=== PATIENT | female | born 1950 | race Caucasian/White ===

== ENCOUNTER 2018-01-22 10:19 | Outpatient (CLI) | payer MEDICARE ==
--- NOTE | 2018-01-25 18:27 | Mammography Report ---
Reason: ENCOUNTER FOR SCREENING MAMMOGRAM FOR MALIGNANT Procedure Date: 01/22/2018 Accession Number: [id number] / [id number] Procedure: ANNY - Screening Mammo w/Deangelo CPT Code: FULL RESULT: EXAM: Screening Mammo w/Deangelo DATE: 01/22/2018 11:19 AM CLINICAL HISTORY: Screening. TECHNIQUE: Bilateral CC and MLO views were obtained. COMPARISON: 10/01/2015 through 03/10/2012 FINDINGS: The breasts demonstrate scattered fibroglandular densities bilaterally. Bilateral breasts: There are no suspicious masses, calcifications or areas of distortion. IMPRESSION: Negative examination RECOMMENDATION: Routine annual screening unless otherwise clinically indicated. BI-RADS CATEGORY 1: Negative STANDARD QUALIFYING STATEMENTS: 1. This examination was not reviewed with the aid of Computer-Aided Detection (CAD). 2. A negative or benign imaging report should not preclude biopsy if clinically suspicious findings are present. 3. Dense breasts may obscure an underlying neoplasm. 4. This examination was reviewed with the aid of 3D breast imaging (tomosynthesis).
== END 2018-01-22 10:20 | disposition home or self-care (01) ==
LOC: DI 10:19
PROVIDERS: ATTEND Internal Medicine
DX: Z12.31 Encounter for screening mammogram for malignant neoplasm of breast (principal)
CPT/HCPCS: 77063; 77067

== ENCOUNTER 2018-01-22 10:19 | Outpatient (CLI) | payer MEDICARE ==
--- NOTE | 2018-01-26 16:15 | DEXA Report ---
Reason: OSTEOPOROSIS Procedure Date: 01/22/2018 Accession Number: [id number] / [id number] Procedure: DEX - Dexa Spine and/or Hip CPT Code: FULL RESULT: EXAM: Dexa Spine and/or Hip DATE: 01/22/2018 11:04 AM CLINICAL HISTORY: OSTEOPOROSIS TECHNIQUE: Dual energy x-ray absorptiometry (DXA) was performed on a [employer] System. Regions measured are the AP Spine, femoral neck, and if needed forearm. COMPARISON: 09/10/2015 In accordance with the International Society for Clinical Densitometry (ISCD) guidelines, data from previous exams may be reanalyzed using current recommendations and techniques. This is done to allow a more accurate basis for comparison with the current study. FINDINGS: The data for the lumbar spine is as follows: BMD (g/cm/cm) T-SCORE Z-SCORE REGION L1 0.819 -2.6 -0.3 L2 0.876 -2.7 -0.4 L3 0.906 -2.4 -0.2 L4 0.940 -2.2 0.1 TOTAL 0.893 -2.4 -0.1 NOTE: All evaluable vertebrae are used for classification The data for the hip is as follows: BMD (g/cm/cm) T-SCORE Z-SCORE REGION Neck 0.708 -2.4 -0.4 TOTAL 0.672 -2.7 -1.0 NOTE: The femoral neck or total proximal femur, whichever is lowest, is used for classification. DXA RESULTS SUMMARY: Spine SCAN DATE AGE BMD CHANGE VS CHANGE VS PREVIOUS PREVIOUS % 01[age]22/2018 [age] 0[age]893 0.021 2.4 09/10/2015 64.7 0[age]872 * Denotes significant change at the 95% confidence level. Denotes dissimilar scan types or analysis methods. DXA RESULTS SUMMARY: Hip SCAN DATE AGE BMD CHANGE VS CHANGE VS PREVIOUS PREVIOUS % 01[age]22/2018 67.1 0.672 -0.008 -1.2 09/10/2015 [age] 0.680 * Denotes significant change at the 95% confidence level. Denotes dissimilar scan types or analysis methods. IMPRESSION: THE WHO CLASSIFICATION BASED ON THE INTERNATIONAL REFERENCE STANDARD IS OSTEOPENIA. THE FRACTURE RISK IS INCREASED. RECOMMENDATION: Patients with diagnosis of osteoporosis or osteopenia should have regular bone mineral density assessment. For those eligible for Medicare, routine testing is allowed once every 2 years. Testing frequency can be increased for patients who have rapidly progressing disease or for those who are receiving medical therapy to restore bone mass. COMMENT: World Health Organization (WHO) definitions for osteoporosis and osteopenia: NORMAL BMD: T-score at -1.0 or higher, fracture risk is low OSTEOPENIA BMD: T-score between -1.0 and -2.5, fracture risk is increased. OSTEOPOROSIS BMD: T-score at -2.5 or lower, fracture risk is high. National Osteoporosis Foundation recommends: 1. Obtain adequate dietary calcium (at least 1200 mg per day) and vitamin D (400-800 international units per day). 2. Participate, as appropriate, in regular weightbearing and muscle-strengthening exercise. 3. Avoid tobacco use and reduce alcohol and caffeine intake. 4. For more detailed information see the website at www.NOF.org.
== END 2018-01-22 10:20 | disposition home or self-care (01) ==
LOC: DI 10:19
PROVIDERS: ATTEND Internal Medicine
DX: Z13.820 Encounter for screening for osteoporosis (principal); M85.89 Other specified disorders of bone density and structure, multiple sites
CPT/HCPCS: 77080

== ENCOUNTER 2018-03-29 10:43 | Day surgery (SDC) | payer MEDICARE ==
[2018-03-29] MEDS ORDERED: LACTATED RINGERS 1,000 ML IV ONE (11:26)
[2018-03-29] MEDS ORDERED: fentaNYL 250 MCG/5 ML VIAL IVP ONE (12:02)
[2018-03-29] MEDS ORDERED: MIDAZOLAM 2 MG/2 ML VIAL IVP ONE (12:02)
[2018-03-29 12:51] VITALS: BP 122/72
== END 2018-03-29 10:44 | disposition home or self-care (01) ==
LOC: SDS 10:43
PROVIDERS: ATTEND Surgery
PROC: 0DJD8ZZ Inspection of Lower Intestinal Tract, Via Natural or Artificial Opening Endoscopic (ICD-10-PCS; principal; 2018-03-29 12:00)
DX: Z12.11 Encounter for screening for malignant neoplasm of colon (principal); Z80.0 Family history of malignant neoplasm of digestive organs; Z85.43 Personal history of malignant neoplasm of ovary; K64.8 Other hemorrhoids
CPT/HCPCS: G0105; J3010; J7120

== ENCOUNTER 2018-05-17 15:46 | Emergency (ER) | payer MEDICARE ==
[2018-05-17 15:59] VITALS: BP 119/58
[2018-05-17] MEDS ORDERED: TETANUS/DIPHTHERIA/PERTUSSIS 0.5 ML SYRINGE IM ONE (16:31)
[2018-05-17] MEDS ORDERED: BUFFERED LIDOCAINE 10 ML SYRINGE SUBQ STA (16:33)
--- NOTE | 2018-05-17 16:46 | ED Physician Documentation ---
PD HPI UPPER EXT INJURY - Stated complaint Stated Complaint: LFT HAND LAC - Chief complaint Chief Complaint: Laceration - History obtained from History obtained from: Patient - History of Present Illness Location: Left (Right Handed woman with unknown tetanus cut her left wrist accidentally with garden socorro at home just prior to arrival.) Review of Systems Constitutional: reports: Reviewed and negative Ears: reports: Reviewed and negative Throat: reports: Reviewed and negative PD PAST MEDICAL HISTORY - Past Medical History Cardiovascular: None Respiratory: None Endocrine/Autoimmune: None GI: None 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: Ovarian cancer : None HEENT: Chronic vision loss Psych: None Musculoskeletal: None Derm: None - Past Surgical History Past Surgical History: Yes /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: Hysterectomy, Oophrectomy HEENT: Tonsil/Adenoidectomy Derm: Other - Present Medications Home Medications: Ambulatory Orders Medication Instructions Recorded Confirmed No Known Home Medications 07/25/14 05/17/18 - Allergies Allergies/Adverse Reactions: Allergies Allergy/AdvReac Type Severity Reaction Status Date / Time No Known Drug Allergies Allergy Verified 05/17/18 15:59 - Social History Does the pt smoke?: No Smoking Status: Never smoker Does the pt drink ETOH?: Yes Does the pt have substance abuse?: No - Immunizations Immunizations are current?: Yes - POLST Patient has POLST: Yes PD ED PE NORMAL - Vitals Vital signs reviewed: Yes - General General: Alert and oriented X 3, No acute distress - Extremities Extremities: Other (On the ulnar side of the left wrist, proximal of the wrist crease there is a shallow 1.5 cm lac into sub-Cutaneous tissue without distal neurovascular compromise.) Results - Vitals Vitals: Vital Signs - 24 hr 05/17/18 15:56 Temperature 36.5 C Heart Rate 71 Respiratory 20 Rate Blood Pressure 119/58 L O2 Saturation 98 Oxygen O2 Source Room air Procedures - Laceration (location) L wrist Length in cm: 1.5 Wound type: Curved, Into subcut fat Neurovascular status: Sensory intact, Motor intact Anesthesia: Lidocaine 1% Wound Preparation: Chlorhexadine, Irrigated copiously NS Skin layer closure: Nylon, Interrupted, Size #-0 - enter number (4-0), Sutures - enter # (3) Other: Patient tolerated well, No complications, Neurovascular intact, Tetanus booster given Complexity: Simple Departure - Departure Disposition: 01 Home, Self Care Clinical Impression: Laceration Condition: Good Record reviewed to determine appropriate education?: Yes Instructions: ED Laceration All Comments: Come back for any signs of infection which would include: Redness, swelling, drainage, increased pain, or fevers. Follow-up with your physician in 14 days for suture removal.
[2018-05-17] MEDS ORDERED: BACITRACIN OINT TOP ONE (17:02)
== END 2018-05-17 17:02 | disposition home or self-care (01) ==
LOC: ED 15:46
DX: S61.512A Laceration without foreign body of left wrist, initial encounter (principal); W27.1XXA Contact with garden tool, initial encounter
CPT/HCPCS: 12001; 90471; 90715; 99282; 99283; A9270

== ENCOUNTER 2018-10-19 01:23 | Outpatient (CLI) | payer MEDICARE | END 2018-10-19 01:24 | disposition critical access hospital (66) | LOC: EMS 01:23 | PROVIDERS: ATTEND Surgery | DX: R10.10 Upper abdominal pain, unspecified (principal); R11.2 Nausea with vomiting, unspecified | CPT/HCPCS: A0425; A0427 ==

== ENCOUNTER 2018-10-19 01:41 | Observation (INO) | payer MEDICARE ==
[2018-10-19 02:08] LABS: BASOPHILS # (AUTO) 0.1 10^3/uL (0.0-0.1); BASOPHILS % (AUTO) 0.5 %; EOSINOPHILS # (AUTO) 0.1 10^3/uL (0.0-0.7); EOSINOPHILS % (AUTO) 0.4 %; HGB - HEMOGLOBIN 15.7 g/dL (12.0-16.0); LYMPHOCYTES % (AUTO) 6.3 %; MEAN CORPUSCULAR HEMOGLOBIN 33.4 pg (27.0-31.0); MEAN CORPUSCULAR HGB CONC 34.5 g/dL (32.0-36.0); MEAN CORPUSCULAR VOLUME 96.8 fL (81.0-99.0); MEAN PLATELET VOLUME 10.2 fL (7.9-10.8); MONOCYTES # (AUTO) 0.5 10^3/uL (0.0-1.0); MONOCYTES % (AUTO) 3.3 %; NEUTROPHILS # (AUTO) 14.7 10^3/uL (1.5-6.6); NEUTROPHILS % (AUTO) 88.8 %; PLT - PLATELET COUNT 256 10^3/uL (130-450); RED CELL DISTRIBUTION WIDTH 11.9 % (12.0-15.0); WHITE BLOOD COUNT 16.6 x10^3/uL (4.8-10.8)
[2018-10-19 02:21] LABS: ALBUMIN 4.3 g/dL (3.2-5.5); ALBUMIN/GLOBULIN RATIO 1.4 (1.0-2.2); BILIRUBIN,TOTAL 0.4 mg/dL (0.2-1.0); CALCIUM 10.2 mg/dL (8.5-10.3); CREATININE 0.7 mg/dL (0.4-1.0); TOTAL PROTEIN 7.4 g/dL (6.7-8.2)
--- NOTE | 2018-10-19 02:35 | ED Physician Documentation ---
PD HPI NVD - Stated complaint Stated Complaint: ABD PX N/V - Chief complaint Chief Complaint: Abd Pain - History obtained from History obtained from: Patient - History of Present Illness Timing - onset: How many hours ago (4) Timing - duration: Hours (4) Timing - details: Abrupt onset, Still present Associated symptoms: Abdominal pain, Loss of appetite. No: Chest pain, Hematemesis Contributing factors: No: Sick contact, Bad food, Recent antibiotics Improved by: Vomiting. No: Laying still Worsened by: Eating, Moving. No: Breathing Similar symptoms before: Diagnosis (bowel obstruction few times, treated nonoperatively. Last episode 2014. Had been doing well with normal intake/diet and bowel movements. Onset of pain just few hours ago.) Recently seen: Not recently seen Review of Systems Constitutional: reports: Fatigue. denies: Fever, Chills, Myalgias Nose: denies: Rhinorrhea / runny nose, Congestion Throat: denies: Sore throat Cardiac: denies: Chest pain / pressure Respiratory: denies: Dyspnea, Cough GI: reports: Abdominal Pain, Nausea, Vomiting. denies: Constipation, Diarrhea, Bloody / black stool : denies: Dysuria, Frequency Skin: denies: Rash Musculoskeletal: denies: Neck pain, Back pain Neurologic: reports: Generalized weakness. 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: Ovarian cancer : None HEENT: Chronic vision loss Psych: None Musculoskeletal: None Derm: None - Past Surgical History Past Surgical History: Yes /CHOKE REAMER: Hysterectomy, Oophrectomy HEENT: Tonsil/Adenoidectomy Derm: Other - Present Medications Home Medications: Ambulatory Orders Medication Instructions Recorded Confirmed No Known Home Medications 07/25/14 05/17/18 - Allergies Allergies/Adverse Reactions: Allergies Allergy/AdvReac Type Severity Reaction Status Date / Time No Known Drug Allergies Allergy Verified 05/17/18 15:59 - Social History Does the pt smoke?: No Smoking Status: Never smoker Does the pt drink ETOH?: Yes Does the pt have substance abuse?: No - Immunizations Immunizations are current?: Yes - POLST Patient has POLST: Yes PD ED PE NORMAL - Vitals Vital signs reviewed: Yes - General General: Alert and oriented X 3, Well developed/nourished, Other (She appears uncomfortable with knees drawn up. The belly is mildly distended with some increased bowel sounds in general tenderness.) - HEENT HEENT: Pharynx benign - Neck Neck: Supple, no meningeal sign, No adenopathy - Cardiac Cardiac: RRR, No murmur - Respiratory Respiratory: Clear bilaterally - Abdomen Abdomen: No organomegaly, Other (Generally tender but mostly in the mid abdomen with some distention and hyperactive bowel sounds.). No: Normal bowel sounds (increased) - Female Female : Deferred - Rectal Rectal: Deferred - Back Back: No CVA TTP - Derm Derm: Normal color, Warm and dry - Extremities Extremities: No deformity, No tenderness to palpate, Normal ROM s pain, No edema, No calf tenderness / cord - Neuro Neuro: Alert and oriented X 3, No motor deficit, Normal speech Results - Vitals Vitals: Vital Signs - 24 hr 10/19/18 10/19/18 01:44 03:46 Temperature 36.7 C Heart Rate 72 73 Respiratory 15 16 Rate Blood Pressure 111/63 105/61 O2 Saturation 99 97 Oxygen O2 Source Room air - Labs Labs: Laboratory Tests 10/19/18 10/19/18 10/19/18 01:50 01:50 03:00 WBC 16.6 H RBC 4.70 Hgb 15.7 Hct 45.5 MCV 96.8 MCH 33.4 H MCHC 34.5 RDW 11.9 L Plt Count 256 MPV 10.2 Neut # (Auto) 14.7 H Lymph # (Auto) 1.0 L [place] # (Auto) 0.5 Eos # (Auto) 0.1 Baso # (Auto) 0.1 Absolute Nucleated RBC 0.00 Nucleated RBC % 0.0 Sodium 145 Potassium 3.8 Chloride 102 Carbon Dioxide 32 Anion Gap 11.0 BUN 15 Creatinine 0.7 Estimated GFR (MDRD) 84 L Glucose 144 H Lactic Acid Calcium 10.2 Magnesium 2.0 Total Bilirubin 0.4 AST 20 ALT 25 Alkaline Phosphatase 75 Total Protein 7.4 Albumin 4.3 Globulin 3.1 Albumin/Globulin Ratio 1.4 Lipase 26 Urine Color Urine Clarity Urine pH Ur Specific [place] Urine Protein Urine Glucose (UA) Urine Ketones Urine Occult Blood Urine Nitrite Urine Bilirubin Urine Urobilinogen Ur Leukocyte Esterase Ur Microscopic Review Urine Culture Comments 10/19/18 10/19/18 03:00 03:31 WBC RBC Hgb Hct MCV MCH MCHC RDW Plt Count MPV Neut # (Auto) Lymph # (Auto) [place] # (Auto) Eos # (Auto) Baso # (Auto) Absolute Nucleated RBC Nucleated RBC % Sodium Potassium Chloride Carbon Dioxide Anion Gap BUN Creatinine Estimated GFR (MDRD) Glucose Lactic Acid 1.5 Calcium Magnesium Total Bilirubin AST ALT Alkaline Phosphatase Total Protein Albumin Globulin Albumin/Globulin Ratio Lipase Urine Color YELLOW Urine Clarity CLEAR Urine pH 8.0 H Ur Specific [place] <=1.005 Urine Protein NEGATIVE Urine Glucose (UA) NEGATIVE Urine Ketones NEGATIVE Urine Occult Blood NEGATIVE Urine Nitrite NEGATIVE Urine Bilirubin NEGATIVE Urine Urobilinogen 0.2 (NORMAL) Ur Leukocyte Esterase NEGATIVE Ur Microscopic Review NOT INDICATED Urine Culture Comments NOT INDICATED - Rads (name of study) abd/pelvic CT Radiology: Prelim report reviewed, See rad report PD MEDICAL DECISION MAKING - ED course Complexity details: reviewed results (CT scan is showing a mid ileal small bowel obstruction with transition in the deep pelvis.), re-evaluated patient (Symptoms much improved with the IV fluids and pain and antiemetic medications.), considered differential (Consistent with likely small bowel obstruction versus diverticulitis versus appendix versus other process. We will get labs and CT scan), d/w patient, d/w packaging sales consultant (Talked with Dr. Rodriguez our hospitalist who would see and hospitalize the patient.) Departure - Departure Disposition: ED Place in Observation Clinical Impression: Vomiting, Partial small bowel obstruction, Small bowel obstruction due to adhesions Abdominal pain Qualifiers: Abdominal location: generalized Qualified Code(s): R10.84 - Generalized abdominal pain Nausea and vomiting Qualifiers: Vomiting type: unspecified Vomiting Intractability: intractable Qualified Code(s): R11.2 - Nausea with vomiting, unspecified Condition: Stable Record reviewed to determine appropriate education?: Yes
[2018-10-19] MEDS ORDERED: SODIUM CHLORIDE 0.9% 1,000 ML IV ONE (02:43)
[2018-10-19] MEDS ORDERED: ONDANSETRON 4 MG/2 ML VIAL IVP STA (02:43)
[2018-10-19] MEDS ORDERED: KETOROLAC 15 MG/ML VIAL IVP STA (02:43)
[2018-10-19] MEDS ORDERED: HYDROmorphone 1 MG/ML CARPUJECT IVP STA (02:43)
[2018-10-19] MEDS ORDERED: IOVERSOL 320 100 ML VIAL IVP ONE ×2 (03:08→03:22)
[2018-10-19 03:43] LABS: BILIRUBIN,URINE NEGATIVE (NEGATIVE); GLUCOSE, URINE (UA) NEGATIVE (NEGATIVE); KETONES,URINE (UA) NEGATIVE (NEGATIVE); LEUKOCYTE ESTERASE, URINE NEGATIVE (NEGATIVE); NITRITE,URINE NEGATIVE (NEGATIVE); OCCULT BLOOD,URINE NEGATIVE (NEGATIVE); PROTEIN,URINE NEGATIVE (NEGATIVE); UROBILINOGEN,URINE 0.2 (NORMAL) E.U./dL (NORMAL)
[2018-10-19 03:44] LABS: CLARITY,URINE CLEAR (CLEAR)
--- NOTE | 2018-10-19 03:48 | CT Report ---
Reason: abd pain and vomiting; prior SBOs lat 2014 Procedure Date: 10/19/2018 Accession Number: [id number] / [id number] Procedure: CT - Abdomen/Pelvis W CPT Code: FULL RESULT: EXAM: CT ABDOMEN AND PELVIS EXAM DATE: 10/19/2018 03:25 AM. CLINICAL HISTORY: Abdominal pain and vomiting; prior small bowel obstructions 2014. COMPARISONS: None. TECHNIQUE: Routine helical CT imaging was performed through the abdomen and pelvis. IV contrast: Yes . Enteric contrast: No . Reconstructions: Coronal and sagittal. In accordance with CT protocol optimization, one or more of the following dose reduction techniques were utilized for this exam: automated exposure control, adjustment of mA and/or KV based on patient size, or use of iterative reconstructive technique. FINDINGS: Lung Bases: Right middle lobe and lingular scarring, otherwise unremarkable. Liver: Small cysts. No suspicious masses. Gallbladder/Bile Ducts: Unremarkable. Spleen: Unremarkable. Pancreas: Unremarkable. Adrenal Glands: Unremarkable. Kidneys: Unremarkable. No suspicious masses or hydronephrosis. Peritoneal Cavity/Bowel: Mid ileal small bowel obstruction with transition in the deep pelvis, probably due to an adhesion. Mild mesenteric edema adjacent to the dilated loops of proximal bowel. Mild free fluid. No gross bowel wall thickening or free air. Pelvic Organs: Post hysterectomy with no adnexal masses seen. The bladder appears within normal limits. Vasculature: No aneurysms or other significant abnormality. Bones: No significant abnormality. Other: None. IMPRESSION: 1. Mid ileal small bowel obstruction with transition in the deep pelvis, probably due to an adhesion. Mild mesenteric edema. 2. Post hysterectomy. RADIA
[2018-10-19] MEDS ORDERED: ONDANSETRON 4 MG/2 ML VIAL IVP PRN (04:05)
[2018-10-19] MEDS ORDERED: ACETAMINOPHEN 325 MG TABLET PO PRN (04:05)
[2018-10-19] MEDS ORDERED: MORPHINE 2 MG/ML CARPUJECT IVP PRN (04:05)
--- NOTE | 2018-10-19 04:14 | HISTORY & PHYSICAL EXAMINATION ---
Chief Complaint - Chief Complaint Chief Complaint: Abdominal pain History of Present Illness - Admitted From Admitted From:: Home - History Obtained From Records Reviewed: Yes History obtained from: Patient, Spouse - History of Present Illness HPI Comment/Other: This is a very pleasant 67 year old female with a past medical history significant for ovarian cancer that is now in remission and recurrent small bowel obstruction who presents from home complaining of abdominal. She states her abdominal pain started yesterday but became more severe around 10pm. She had nausea along with multiple episodes of emesis. She was initially passing gas but is no longer. Her last bowel movement was >24 hours ago. She reports her symptoms are similar to her prior episodes of small bowel obstruction. Her most recent episode was in 2014. She had a hysterectomy for her ovarian cancer back in 1999 followed by another exploratory laparotomy after she completed chemotherapy. She denies fevers, chills, dysuria, urgency, chest pain, cough. She reports feeling improved here in the ER after receiving IV fluids and pain medication. In the ER, she was afebrile, normotensive and not tachycardic. Labs were significant for a leukocytosis of 16 with a left shift. Urinalysis was unremarkable. CT of the abdomen/pelvic revealed a mid ileal small bowel obstruction with transition in the deep pelvis. She will be admitted for further management. 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 She believes her grandfather may have had a stroke. Living arrangement: At home Living Situation: With spouse/s.o. Social History Notes: She has lived on [facility] for the past 5 years with her . 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 They previously lived in [place], [place]. She does not smoke. Does drink alcohol but not daily. - Substance History Use: Uses substance without health or social issues: Alcohol - POLST Patient has POLST: Yes Meds/Allgy - Home Medications Home Medications: Ambulatory Orders Medication Instructions Recorded Confirmed No Known Home Medications 07/25/14 05/17/18 - Allergies Allergies/Adverse Reactions: Allergies Allergy/AdvReac Type Severity Reaction Status Date / Time No Known Drug Allergies Allergy Verified 05/17/18 15:59 Review of Systems - Constitutional Constitutional: reports: Poor appetite. denies: Fever, Chills - Cardiovascular Cariovascular: denies: Chest pain, Exertional dyspnea, Decr. exercise tolerance - Respiratory Respiratory: denies: Cough, SOB at rest, SOB with exertion - Gastrointestinal Gastrointestinal: reports: Abdominal pain, Nausea, Vomiting, Poor appetite. denies: Diarrhea, Darell blood emesis - Genitourinary Genitourinary: denies: Dysuria, Frequency, Urgency, Hematuria - Integumentary Integumentary: denies: Rash - Neurological Neurological: denies: General weakness, Focal weakness - All Other Systems All Other Systems: reports: Reviewed and negative Prior Level of Functionality: Independent with ADL's. Exam - Vital Signs Reviewed Vital Signs: Yes Vital Signs: Vital Signs x48h Temp Pulse Resp BP Pulse Ox 10/19/18 01:44 36.7 C 72 15 111/63 99 - Physical Exam General Appearance: positive: No acute distress, Alert Eyes Bilateral: positive: Normal inspection ENT: positive: ENT inspection nml Neck: positive: Nml inspection Respiratory: positive: No respiratory distress, Breath sounds nml. negative: Wheezes, Rales, Rhonchi Cardiovascular: positive: Regular rate & rhythm, No murmur. negative: Tachycardia, Bradycardia, Systolic murmur, Diastolic murmur Abdomen: positive: No distention, Tenderness (Most prominent in the right lower quadrant), Abnml bowel sounds (Hyperactive). negative: Non-tender, Guarding, Rebound Skin: positive: Color nml, No rash, Warm, Dry Extremities: positive: Full ROM, No pedal edema Neurologic/Psychiatric: positive: Oriented x3, Motor nml. negative: Disoriented to person, Disoriented to place, Disoriented to time, Weakness Conclusion/Plan - Problem List (1) Small bowel obstruction due to adhesions Conclusion/Plan: Presented with abdominal pain, nausea, and vomiting. She has small bowel obstruction as evident on CT of the abdomen/pelvis. Transition point is in the deep pelvis. This now her third or fourth episode of small bowel obstruction with most recent being back in 2015. - Morphine PRN pain - Zofran PRN - NPO for now - Hold off on placing an NG as she clinically looks improved and does not have nausea at this time - Consider gastrografin study in the AM - Consult General Surgery (2) Leukocytosis Conclusion/Plan: Suspect that this is reactive secondary to her small bowel obstruction and multiple episodes of emesis. No signs of infection. Urinalysis unremarkable. - No indication for antibiotics at this time - Monitor CBC (3) History of ovarian cancer Conclusion/Plan: She has a history of ovarian cancer in 1999 that was treated with chemotherapy and hysterectomy followed by intraperitoneal chemotherapy. Currently in remission. Stable. - Lab Results Lab results reviewed: Yes Fish Bones: 10/19/18 01:50 10/19/18 01:50 - Diagnostic Imaging Results Diagnostic Imaging Results: positive: Final report reviewed Core Measures - Anticipated LOS I expect patient to be DC'd or transferred within 96 hours.: Yes - Issues Hospital Issues and Management Plan: Small bowel obstruction requiring IV pain control and antiemetics. - DVT/VTE - Prophylaxis VTE/DVT Device ordered at admit?: Yes
[2018-10-19] MEDS ORDERED: LACTATED RINGERS 1,000 ML IV SCH (05:00)
[2018-10-19] MEDS: SODIUM CHLORIDE FLUSH 0.9% 10 ML SYRINGE IVP PRN ×2 (05:25→06:23)
[2018-10-19] MEDS ORDERED: PANTOPRAZOLE 40 MG VIAL IVP SCH (07:00)
--- NOTE | 2018-10-19 08:21 | XRAY Report ---
Reason: Follow up SBO. Procedure Date: 10/19/2018 Accession Number: [id number] / [id number] Procedure: XR - Abdomen 1 View X-Ray CPT Code: 81808 FULL RESULT: EXAM: ABDOMEN RADIOGRAPHY EXAM DATE: 10/19/2018 08:02 AM. CLINICAL HISTORY: Followup small bowel obstruction. COMPARISON: ABDOMEN/PELVIS W/ 10/19/2018 3:12 AM. TECHNIQUE: 1 view. FINDINGS: Bowel Gas Pattern: Mildly prominent gas-filled loops of bowel in the left side of the abdomen measure up to 3.1 cm in diameter. Gaseous distention of small bowel appears decreased compared to the prior CT. There is a moderate amount of formed stool in the ascending colon and transverse colon. Other: There are surgical clips in the right side of the abdomen. There is excreted contrast in the renal collecting systems and urinary bladder. No abnormal intra-abdominal calcification or mass-effect. The visualized lung bases are clear. No acute osseous normality. IMPRESSION: Gaseous distention of small bowel appears decreased compared to the prior CT. There are a few mildly prominent gas-filled loops of bowel in the left side of the abdomen measuring up to 3.1 cm in diameter. RADIA
[2018-10-19] MEDS ORDERED: ENOXAPARIN 40 MG/0.4 ML SYRINGE SUBQ SCH (09:00)
--- NOTE | 2018-10-19 14:17 | Discharge Plan ---
Discharge Plan Problem Reviewed?: Yes Disposition: Home, Self Care Condition: Good Prescriptions: Psyllium [Metamucil] 1 each PO DAILY #30 packet Diet: Regular Activity Restrictions: Activity as Tolerated Shower Restrictions: No Driving Restrictions: No Health Concerns: Small bowel obstruction Plan of Treatment: Have soft foods for the next few days, take metamucil each day or benefiber (both can be purchased at [employer], the grocery store, or a pharmacy) Care Goals: Prevent recurrence of bowel obstruction Further testing to explore reasons for this adhesion, abnormality in your bowels Assessment: Since you were tolerating food and had nearly a full resolution of your abdominal pain, you will do fine at home. To prevent a future obstruction, please avoid raw vegetables, and take a daily bene-fiber or Metamucil. Please talk more about further work up as to the actual cause of this obstruction since a regular colonoscopy may not have been sufficient. See your PCP within one week. Additional Instructions or Follow Up instructions: If you find that you are becoming constipated, you may get a product called magnesium citrate, which is one of the strongest over the counter laxative to prevent a blockage. No Smoking: If you smoke, Please STOP! Call for help. Follow-up with: LILIYA CHAPA ARNP [Primary Care Provider] -
[2018-10-19] MEDS ORDERED: PSYLLIUM PACKET PO SCH (14:18)
--- NOTE | 2018-10-19 14:18 | DISCHARGE SUMMARY ---
"Discharge Summary Admit Date: 10/19/18 Discharge Date: 10/19/18 Discharging Provider: GONZALO Sanchez Primary Care Provider: Xiomara Mar Code Status: Do Not Attempt Resuscitation Condition at Discharge: Good Discharge Disposition: 01 Home, Self Care - DIAGNOSES Admission Diagnoses: Small bowel obstruction due to adhesions Leukocytosis History of ovarian cancer Discharge Diagnoses with Status of Each Condition: Small bowel obstruction due to adhesions- resolved, will follow up outpatient Leukocytosis- resolved History of ovarian cancer- chronic, stable Abdominal pain- resolved - HPI History of Present Illness: HPI per Dr. Ecehvarria: This is a very pleasant 67 year old female with a past medical history significant for ovarian cancer that is now in remission and recurrent small bowel obstruction who presents from home complaining of abdominal. She states her abdominal pain started yesterday but became more severe around 10pm. She had nausea along with multiple episodes of emesis. She was initially passing gas but is no longer. Her last bowel movement was >24 hours ago. She reports her symptoms are similar to her prior episodes of small bowel obstruction. Her most recent episode was in 2014. She had a hysterectomy for her ovarian cancer back in 1999 followed by another exploratory laparotomy after she completed chemotherapy. She denies fevers, chills, dysuria, urgency, chest pain, cough. She reports feeling improved here in the ER after receiving IV fluids and pain medication. In the ER, she was afebrile, normotensive and not tachycardic. Labs were significant for a leukocytosis of 16 with a left shift. Urinalysis was unremarkable. CT of the abdomen/pelvic revealed a mid ileal small bowel obstruction with transition in the deep pelvis. She will be admitted for further management. - CONSULTS | PROCEDURES Consultations: None - HOSPITAL COURSE Hospital Course: Small bowel obstruction due to adhesions- Presented with abdominal pain, nausea, and vomiting. She has small bowel obstruction as evident on CT of the abdomen/pelvis. Transition point is in the deep pelvis. This now her third or fourth episode of small bowel obstruction with most recent being back in 2014. - Morphine PRN pain, Zofran PRN, no NG was required and this resolved on its own with the patient remaining NPO, then transitioned to clear liquids and finally a soft diet. No gastrografin study was done and the patient declined a General Surgery consult as she preferred to follow up outpatient. The patient was pain free and discharged home with family. Leukocytosis Suspected to be reactive secondary to her small bowel obstruction and multiple episodes of emesis. She showed no signs of infection. Urinalysis unremarkable. History of ovarian cancer- She has a history of ovarian cancer in 1999 that was treated with chemotherapy and hysterectomy followed by intraperitoneal chemotherapy. Currently in remission. Disposition: Patient was given diet recommendations by our dietitian and sent home with Benefiber to continue each day. She had consumed raw carrots as her usually does prior to this event, and encouraged to make sure she steams her carrots before eating them. - ALLERGIES Allergies/Adverse Reactions: Allergies Allergy/AdvReac Type Severity Reaction Status Date / Time No Known Drug Allergies Allergy Verified 05/17/18 15:59 - MEDICATIONS Home Medications: Ambulatory Orders Medication Instructions Recorded Confirmed Psyllium [Metamucil] 1 each PO DAILY #30 packet 10/19/18 - PHYSICAL EXAM AT DISCHARGE General Appearance: positive: No acute distress, Alert Eyes Bilateral: positive: Normal inspection, PERRL ENT: positive: Pharynx nml, No signs of dehydration Neck: positive: Nml inspection, Thyroid nml, No JVD, Trachea midline Respiratory: positive: Chest non-tender, No respiratory distress, Breath sounds nml Cardiovascular: positive: Regular rate & rhythm, No murmur, No gallop Peripheral Pulses: positive: 2+ Abdomen: positive: Non-tender, No organomegaly, Nml bowel sounds, No distention Back: positive: Nml inspection Skin: positive: Color nml, No rash, Warm, Dry Extremities: positive: Non-tender, Full ROM, Nml appearance, No pedal edema Neurologic/Psychiatric: positive: Oriented x3, CN's nml (2-12), Motor nml, Sensation nml, Mood/affect nml Reflexes: Bicep (R): 3+, Bicep (L): 3+ - LABS Result Diagrams: 10/19/18 01:50 10/19/18 01:50 - DIAGNOSTIC IMAGING Diagnostic Imaging Results: Final report reviewed Diagnostic Imaging Results Comments: EXAM: CT ABDOMEN AND PELVIS EXAM DATE: 10/19/2018 03:25 AM IMPRESSION: 1. Mid ileal small bowel obstruction with transition in the deep pelvis, probably due to an adhesion. Mild mesenteric edema. 2. Post h ysterectomy. EXAM: ABDOMEN RADIOGRAPHY EXAM DATE: 10/19/2018 08:02 AM IMPRESSION: Gaseous distention of small bowel appears decreased compared to the prior CT. There are a few mildly prominent gas-filled loops of bowel in the left side of the abdomen measuring up to 3.1 cm in diameter. - FOLLOW UP Follow Up: Disposition: Home, Self Care Prescriptions: Psyllium [Metamucil] 1 each PO DAILY #30 packet Health Concerns: Small bowel obstruction Plan of Treatment: Have soft foods for the next few days, take metamucil each day or benefiber (both can be purchased at [employer], the grocery store, or a pharmacy) Care Goals: Prevent recurrence of bowel obstruction, Further testing to explore reasons for this adhesion, abnormality in your bowels Assessment: Since you were tolerating food and had nearly a full resolution of your abdominal pain, you will do fine at home. To prevent a future obstruction, please avoid raw vegetables, and take a daily bene-fiber or Metamucil. Please talk more about further work up as to the actual cause of this obstruction since a regular colonoscopy may not have been sufficient. See your PCP within one week. Additional Instructions or Follow Up instructions: If you find that you are becoming constipated, you may get a product called magnesium citrate, which is one of the strongest over the counter laxative to prevent a blockage. - TIME SPENT Time Spent in Discharge (Minutes): 45"
[2018-10-19] MEDS: SODIUM CHLORIDE FLUSH 0.9% 10 ML SYRINGE IVP SCH ×2 (14:22→18:04)
[2018-10-19 17:46] VITALS: BP 122/51
== END 2018-10-19 17:55 | disposition home or self-care (01) ==
LOC: EDUNIT# → ED 01:41 → MS3 04:05
PROVIDERS: ADMIT Internal Medicine; ATTEND Nurse Practitioner
DX: K56.50 Intestinal adhesions [bands], unspecified as to partial versus complete obstruction (principal); D72.829 Elevated white blood cell count, unspecified; Z85.43 Personal history of malignant neoplasm of ovary; Z90.710 Acquired absence of both cervix and uterus; Z92.21 Personal history of antineoplastic chemotherapy; H54.7 Unspecified visual loss
CPT/HCPCS: 36415; 74018; 74177; 80053; 81003; 83605; 83690; 83735; 85025; 96361; 96374; 96375; 99285; A9270; G0378; J1170; J7120; Q9967; 81001; 87086

== ENCOUNTER 2019-11-02 00:40 | Emergency (ER) | payer MEDICARE ==
--- NOTE | 2019-11-02 00:54 | ED Physician Documentation ---
PD HPI ABD PAIN - Stated complaint Stated Complaint: ABD PX - Chief complaint Chief Complaint: Abd Pain - History obtained from History obtained from: Patient - History of Present Illness Timing - onset: Enter time (22:30), Today Timing - details: Abrupt onset Pain level now: 8 Quality: Pain Location: All over / everywhere (predominantly periumbilical but waxing and waning pain that spreads to entire abdomen at times) Improved by: Other (nothing) Worsened by: Other (no exacerbating factors) Associated symptoms: Nausea. No: Fever, Vomiting, Diarrhea, Constipation Similar symptoms before: Diagnosis (similar to previous SBO) Recently seen: Not recently seen Review of Systems Constitutional: denies: Fever, Chills, Sweats Cardiac: reports: Reviewed and negative Respiratory: reports: Reviewed and negative GI: reports: Abdominal Pain, Nausea. 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 : None HEENT: Chronic vision loss Psych: None Musculoskeletal: Osteoporosis Derm: None - Past Surgical History Past Surgical History: Yes /BUSINESS CONTINUITY ANALYST: Hysterectomy, Oophrectomy HEENT: Tonsil/Adenoidectomy Derm: Other - Present Medications Home Medications: Ambulatory Orders Medication Instructions Recorded Confirmed Psyllium [Metamucil] 1 each PO DAILY #30 packet 10/19/18 - Allergies Allergies/Adverse Reactions: Allergies Allergy/AdvReac Type Severity Reaction Status Date / Time No Known Drug Allergies Allergy Verified 11/02/19 00:52 - Social History Does the pt smoke?: No Smoking Status: Former smoker Does the pt drink ETOH?: Yes Does the pt have substance abuse?: No - Immunizations Immunizations are current?: Yes - POLST Patient has POLST: Yes PD ED PE NORMAL - Vitals Vital signs reviewed: Yes - General General: Alert and oriented X 3, Well developed/nourished, Other (appears to be in painful distress) - HEENT HEENT: Moist mucous membranes - Neck Neck: Supple, no meningeal sign - Cardiac Cardiac: RRR, No murmur - Respiratory Respiratory: No respiratory distress, Clear bilaterally - Abdomen Abdomen: Soft, Non distended, Other (TTP midline without rebound or guarding, no masses. midline old surgical scar) - Back Back: No CVA TTP - Derm Derm: Normal color, Warm and dry Results - Vitals Vitals: Vital Signs - 24 hr 11/02/19 11/02/19 11/02/19 00:50 01:06 02:04 Temperature 36.4 C L Heart Rate 60 71 70 Respiratory 18 16 14 Rate Blood Pressure 102/59 L 107/62 O2 Saturation 100 95 98 11/02/19 11/02/19 04:00 05:19 Temperature 36.7 C Heart Rate 72 71 Respiratory 16 16 Rate Blood Pressure 111/71 108/75 O2 Saturation 97 99 Oxygen O2 Source Room air - Labs Labs: Laboratory Tests 11/02/19 11/02/19 11/02/19 01:00 01:00 01:55 WBC 7.9 RBC 4.62 Hgb 15.4 Hct 44.5 MCV 96.3 MCH 33.3 H MCHC 34.6 RDW 11.6 L Plt Count 246 MPV 10.2 Neut # (Auto) 5.6 Lymph # (Auto) 1.6 [place] # (Auto) 0.4 Eos # (Auto) 0.2 Baso # (Auto) 0.1 Absolute Nucleated RBC 0.00 Nucleated RBC % 0.0 Sodium 140 Potassium 3.5 Chloride 100 L Carbon Dioxide 28 Anion Gap 12.0 BUN 15 Creatinine 0.6 Estimated GFR (MDRD) 100 Glucose 143 H Calcium 9.6 Total Bilirubin 0.4 AST 20 ALT 19 Alkaline Phosphatase 61 Total Protein 6.9 Albumin 4.2 Globulin 2.7 Albumin/Globulin Ratio 1.6 Lipase 24 Urine Color YELLOW Urine Clarity CLEAR Urine pH 8.5 H Ur Specific [place] 1.020 Urine Protein NEGATIVE Urine Glucose (UA) NEGATIVE Urine Ketones NEGATIVE Urine Occult Blood NEGATIVE Urine Nitrite NEGATIVE Urine Bilirubin NEGATIVE Urine Urobilinogen 0.2 (NORMAL) Ur Leukocyte Esterase NEGATIVE Ur Microscopic Review NOT INDICATED Urine Culture Comments NOT INDICATED - Rads (name of study) CT A/P with IV/PO contrast Radiology: Prelim report reviewed, See rad report PD MEDICAL DECISION MAKING - ED course Complexity details: reviewed results, re-evaluated patient, considered differential, d/w patient ED course: On reevaluation after tests resulted, patient is awake, alert, and in NAD. She reports complete resolution of her symptoms and repeat abdominal exam reveals no tenderness on palpation. Tests are unremarkable including blood tests, UA, and CT. Departure - Departure Disposition: 01 Home, Self Care Clinical Impression: Abdominal pain Condition: Good Instructions: ED Abdominal Pain Unkn Cause Discharge Date/Time: 11/02/19 05:20
[2019-11-02] MEDS ORDERED: IOVERSOL 320 50 ML VIAL ONE (01:06)
[2019-11-02] MEDS ORDERED: IOVERSOL 320 100 ML VIAL IVP ONE ×2 (01:06→03:15)
[2019-11-02 01:10] LABS: BASOPHILS # (AUTO) 0.1 10^3/uL (0.0-0.1); EOSINOPHILS # (AUTO) 0.2 10^3/uL (0.0-0.7); EOSINOPHILS % (AUTO) 2.3 %; HGB - HEMOGLOBIN 15.4 g/dL (12.0-16.0); LYMPHOCYTES # (AUTO) 1.6 10^3/uL (1.5-3.5); LYMPHOCYTES % (AUTO) 20.3 %; MEAN CORPUSCULAR HEMOGLOBIN 33.3 pg (27.0-31.0); MEAN CORPUSCULAR HGB CONC 34.6 g/dL (32.0-36.0); MEAN CORPUSCULAR VOLUME 96.3 fL (81.0-99.0); MEAN PLATELET VOLUME 10.2 fL (7.9-10.8); MONOCYTES # (AUTO) 0.4 10^3/uL (0.0-1.0); MONOCYTES % (AUTO) 5.6 %; NEUTROPHILS # (AUTO) 5.6 10^3/uL (1.5-6.6); NEUTROPHILS % (AUTO) 70.4 %; PLT - PLATELET COUNT 246 10^3/uL (130-450); RED BLOOD COUNT 4.62 10^6/uL (4.20-5.40); RED CELL DISTRIBUTION WIDTH 11.6 % (12.0-15.0); WHITE BLOOD COUNT 7.9 x10^3/uL (4.8-10.8)
[2019-11-02 01:23] LABS: ALBUMIN 4.2 g/dL (3.2-5.5); ALBUMIN/GLOBULIN RATIO 1.6 (1.0-2.2); BILIRUBIN,TOTAL 0.4 mg/dL (0.2-1.0); CALCIUM 9.6 mg/dL (8.5-10.3); CREATININE 0.6 mg/dL (0.4-1.0); TOTAL PROTEIN 6.9 g/dL (6.7-8.2)
[2019-11-02 02:03] LABS: BILIRUBIN,URINE NEGATIVE (NEGATIVE); GLUCOSE, URINE (UA) NEGATIVE (NEGATIVE); KETONES,URINE (UA) NEGATIVE (NEGATIVE); LEUKOCYTE ESTERASE, URINE NEGATIVE (NEGATIVE); NITRITE,URINE NEGATIVE (NEGATIVE); OCCULT BLOOD,URINE NEGATIVE (NEGATIVE); PH,URINE 8.5 PH (5.0-7.5); PROTEIN,URINE NEGATIVE (NEGATIVE); UROBILINOGEN,URINE 0.2 (NORMAL) E.U./dL (NORMAL)
[2019-11-02 02:04] LABS: CLARITY,URINE CLEAR (CLEAR)
[2019-11-02] MEDS ORDERED: IOVERSOL 320 50 ML VIAL PO ONE (03:15)
[2019-11-02 05:20] VITALS: BP 108/75
--- NOTE | 2019-11-02 07:52 | CT Report ---
PROCEDURE: Abdomen/Pelvis W INDICATIONS: abd. pain CONTRAST: IV CONTRAST: Optiray 320 ml: 100 PO CONTRAST: Optiray 320 ml50 TECHNIQUE: After the administration of oral and intravenous contrast, 5 mm thick sections acquired from the diap hragms to the symphysis. 5 mm thick coronal and sagittal reformats were acquired. For radiation dos e reduction, the following was used: automated exposure control, adjustment of mA and/or kV accordin g to patient size. COMPARISON: None. FINDINGS: Image quality: Excellent. ABDOMEN: Lung bases: Lung bases are clear. Heart size is normal. Solid organs: Liver and spleen are normal in size and enhancement. Small liver cysts. No solid live r masses. Gallbladder is unremarkable Biliary system is non dilated. Pancreas enhances normally. N o adrenal nodules. Kidneys demonstrate normal size and enhancement, without hydronephrosis. Peritoneum and bowel: Bowel loops demonstrate normal wall thickness and caliber. No free fluid or a ir. Moderate fecal debris. Nodes and vessels: No retroperitoneal or mesenteric adenopathy by size criteria. Aorta and inferior vena cava are normal in size. Miscellaneous: No ventral hernias. Multiple abdominal surgical clips. PELVIS: Genitourinary: Bladder wall thickness is normal. Miscellaneous: No inguinal hernias or adenopathy. Uterus is surgically absent. Bones: No suspicious bony lesions. No vertebral body compression fractures. IMPRESSION: 1. No evidence acute abdominal process. 2. Moderate fecal debris. A preliminary report with the above findings was provided at the time of the study by [facility]. Reviewed by: Kalin Guidry MD on 11/02/2019 7:51 AM PDT Approved by: Kalin Guidry MD on 11/02/2019 7:51 AM PDT Station ID: [id number]
== END 2019-11-02 05:20 | disposition home or self-care (01) ==
LOC: ED 00:40
DX: R10.9 Unspecified abdominal pain (principal); Z87.891 Personal history of nicotine dependence
CPT/HCPCS: 36415; 74177; 80053; 81003; 83690; 85025; 99284; Q9967; 81001; 87086

== ENCOUNTER 2020-11-30 12:02 | Day surgery (SDC) | payer MEDICARE ==
[2020-11-30] MEDS ORDERED: LACTATED RINGERS 1,000 ML IV ONE ×2 (12:27→13:47)
[2020-11-30] MEDS ORDERED: PROPOFOL 200 MG/20 ML VIAL IVP ONE ×2 (12:42→13:39)
[2020-11-30] MEDS ORDERED: MIDAZOLAM 2 MG/2 ML VIAL ONE ×2 (12:42→13:31)
[2020-11-30] MEDS ORDERED: fentaNYL 100 MCG/2 ML VIAL ONE ×2 (12:42→13:32)
--- NOTE | 2020-11-30 12:59 | ANESTHESIA ---
Pre-Anesthesia VS, & Labs - Diagnosis screening exam, family hx of colon cancer - Procedure colonoscopy Vital Signs: Temp Pulse Resp BP Pulse Ox 36.8 C 99 14 121/56 L 100 11/30/20 12:19 11/30/20 12:19 11/30/20 12:19 11/30/20 12:19 11/30/20 12:19 Height: 5 ft 1 in Weight (kg): 43 kg Body Mass Index: 17.9 BMI Classification: Underweight - NPO >8 hours - Is Patient ?: No Home Medications and Allergies Home Medications: Ambulatory Orders No Known Home Medications 11/30/20 No Known Home Medications 11/30/20 Allergies/Adverse Reactions: Allergies Allergy/AdvReac Type Severity Reaction Status Date / Time No Known Drug Allergies Allergy Verified 11/02/19 00:52 Anes History & Medical History - Anesthetic History Anesthesia Complications: reports: No previous complications - Medical History Cardiovascular: reports: None Pulmonary: reports: None Gastrointestinal: reports: None Urinary: reports: None Neuro: reports: None Musculoskeletal: reports: Osteoporosis Endocrine/Autoimmune: reports: None Blood Disorders: reports: None Skin: reports: None Smoking Status: Former smoker (Quit 40 years ago) Psychosocial: reports: No issues indicated History of Cancer?: Yes - Surgical History General: reports: Colonoscopy Eyes Ears Nose Throat (EENT): reports: Tonsil/Adenoidectomy Gynecologic: reports: Hysterectomy, Oophrectomy Dermatologic: reports: Other Exam General: Alert, Oriented x3, Cooperative, No acute distress Dental: WNL Mouth Openin Fingerbreadth Neck Mobility: Normal Mallampati classification: I Thyromental Distance: 4-6 cm Mental/Cognitive Status: Alert/Oriented X3, Normal for patient Plan Anesthesia Type: Total IV Consent for Procedure(s) Verified and Reviewed: Yes Code Status: Attempt Resuscitation ASA classification: 2-Mild systemic disease Is this case an emergency?: No
[2020-11-30 13:58] VITALS: BP 107/57
--- NOTE | 2020-11-30 15:12 | ANESTHESIA POST OP EVALUATION ---
Anesthesia Post Eval - Post Anesthesia Eval Vitals: Last Vital Signs Temp 36.9 C 11/30/20 13:47 Pulse 85 11/30/20 13:57 Resp 13 11/30/20 13:57 BP 107/57 L 11/30/20 13:57 Pulse Ox 100 11/30/20 13:57 CV Function Including HR & BP: Stable Pain Control: Satisfactory Nausea & Vomiting: Negative Mental Status: Baseline Respiratory Status: Airway Patent Hydration Status: Satisfactory Anesthesia Complications: None
== END 2020-11-30 12:03 | disposition home or self-care (01) ==
LOC: SDS 12:02
PROVIDERS: ATTEND Surgery
PROC: 0DBM8ZZ Excision of Descending Colon, Via Natural or Artificial Opening Endoscopic (ICD-10-PCS; principal; 2020-11-30 13:00)
DX: Z12.11 Encounter for screening for malignant neoplasm of colon (principal); D12.4 Benign neoplasm of descending colon; D12.3 Benign neoplasm of transverse colon; D12.5 Benign neoplasm of sigmoid colon; K63.5 Polyp of colon; Z80.0 Family history of malignant neoplasm of digestive organs; Z85.43 Personal history of malignant neoplasm of ovary; Z87.891 Personal history of nicotine dependence
CPT/HCPCS: 45380; J7120

== ENCOUNTER 2022-01-07 04:38 | Emergency (ER) | payer MEDICARE ==
--- NOTE | 2022-01-07 05:00 | ED Physician Documentation ---
History of Present Illness - Stated complaint Stated Complaint: ABD PX/CHEST PX/WEAKNESS - Chief complaint Chief Complaint: Back Pain - Additonal information Additional information: Patient is 71-year-old female presenting to the emergency department with chief complaint of abdominal pain. Reports diffuse epigastric abdominal pain radiating into her back. It began at approximately midnight last night. Reports similar sensation in the past. [facility] He developed abdominal pain shortly thereafter and was readmitted to [facility] for what she describes as acute pancreatitis secondary to the ERCP. Discharged on Thursday. Was doing well at home until this evening. Symptoms are associated with nausea. She also reports some loose stool but denies blood in the stool. Denies chest pain or shortness of breath. 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 cancer : None HEENT: Chronic vision loss Psych: None Musculoskeletal: Osteoporosis Derm: None - Past Surgical History Past Surgical History: Yes General: Colonoscopy /HOSE MENDER: Hysterectomy, Oophrectomy HEENT: Tonsil/Adenoidectomy Derm: Other - Present Medications Home Medications: Ambulatory Orders Medication Instructions Recorded Confirmed No Known Home Medications 11/30/20 01/07/22 - Allergies Allergies/Adverse Reactions: Allergies Allergy/AdvReac Type Severity Reaction Status Date / Time No Known Drug Allergies Allergy Verified 11/02/19 00:52 - Social History Does the pt smoke?: No Smoking Status: Former smoker (Quit 40 years ago) Does the pt drink ETOH?: Yes Does the pt have substance abuse?: No - Immunizations Immunizations are current?: Yes - POLST Patient has POLST: Yes PD ED PE NORMAL - General General: Alert and oriented X 3, Other (Patient in acute distress, has her knees bent, rocking back and forth in the gurney.) - HEENT HEENT: Atraumatic, PERRL, EOMI - Neck Neck: Supple, no meningeal sign, No bony TTP - Cardiac Cardiac: RRR, No gallop, Strong equal pulses - Respiratory Respiratory: No respiratory distress - Abdomen Abdomen: Normal bowel sounds, Other (Epigastric tenderness to palpation.) - Female Female : Deferred - Rectal Rectal: Deferred - Back Back: No CVA TTP - Derm Derm: Normal color - Extremities Extremities: No deformity Results - Vitals Vitals: Oxygen O2 Source Room air - EKG (time done) 0530 Rate: Rate (enter#) (67) Rhythm: NSR [place]: Normal Intervals: Prolonged CT QRS: Normal Ischemia: Non specific changes Computer interpretation: Agree with computer - Labs Labs: Laboratory Tests 01/07/22 01/07/22 01/07/22 05:00 05:00 05:00 WBC 8.5 RBC 4.67 Hgb 14.9 Hct 45.1 MCV 96.6 MCH 31.9 H MCHC 33.0 RDW 11.9 L Plt Count 492 H MPV 10.0 Neut # (Auto) 5.3 Lymph # (Auto) 2.3 Gordon # (Auto) 0.4 Eos # (Auto) 0.4 Baso # (Auto) 0.1 Absolute Nucleated RBC 0.00 Nucleated RBC % 0.0 PT 10.4 INR 0.9 Sodium 141 Potassium 3.5 Chloride 102 Carbon Dioxide 27 Anion Gap 12.0 BUN 9 Creatinine 0.6 Estimated GFR (MDRD) 99 Glucose 143 H Lactic Acid Calcium 10.8 H Total Bilirubin 0.5 AST 27 ALT 26 Alkaline Phosphatase 58 Troponin I High Sens Total Protein 7.0 Albumin 3.8 Globulin 3.2 Albumin/Globulin Ratio 1.2 Lipase 120 H TSH Urine Color Urine Clarity Urine pH Ur Specific [place] Urine Protein Urine Glucose (UA) Urine Ketones Urine Occult Blood Urine Nitrite Urine Bilirubin Urine Urobilinogen Ur Leukocyte Esterase Ur Microscopic Review Urine Culture Comments SARS-CoV-2 (PCR) 01/07/22 01/07/22 01/07/22 05:00 05:00 05:00 WBC RBC Hgb Hct MCV MCH MCHC RDW Plt Count MPV Neut # (Auto) Lymph # (Auto) Gordon # (Auto) Eos # (Auto) Baso # (Auto) Absolute Nucleated RBC Nucleated RBC % PT INR Sodium Potassium Chloride Carbon Dioxide Anion Gap BUN Creatinine Estimated GFR (MDRD) Glucose Lactic Acid 1.9 Calcium Total Bilirubin AST ALT Alkaline Phosphatase Troponin I High Sens 2.6 Total Protein Albumin Globulin Albumin/Globulin Ratio Lipase TSH 1.56 Urine Color Urine Clarity Urine pH Ur Specific [place] Urine Protein Urine Glucose (UA) Urine Ketones Urine Occult Blood Urine Nitrite Urine Bilirubin Urine Urobilinogen Ur Leukocyte Esterase Ur Microscopic Review Urine Culture Comments SARS-CoV-2 (PCR) 01/07/22 01/07/22 05:12 06:00 WBC RBC Hgb Hct MCV MCH MCHC RDW Plt Count MPV Neut # (Auto) Lymph # (Auto) Gordon # (Auto) Eos # (Auto) Baso # (Auto) Absolute Nucleated RBC Nucleated RBC % PT INR Sodium Potassium Chloride Carbon Dioxide Anion Gap BUN Creatinine Estimated GFR (MDRD) Glucose Lactic Acid Calcium Total Bilirubin AST ALT Alkaline Phosphatase Troponin I High Sens Total Protein Albumin Globulin Albumin/Globulin Ratio Lipase TSH Urine Color LIGHT YELLOW Urine Clarity CLEAR Urine pH 7.0 Ur Specific [place] <=1.005 Urine Protein NEGATIVE Urine Glucose (UA) NEGATIVE Urine Ketones NEGATIVE Urine Occult Blood NEGATIVE Urine Nitrite NEGATIVE Urine Bilirubin NEGATIVE Urine Urobilinogen 0.2 (NORMAL) Ur Leukocyte Esterase NEGATIVE Ur Microscopic Review NOT INDICATED Urine Culture Comments NOT INDICATED SARS-CoV-2 (PCR) NOT DETECTED PD MEDICAL DECISION MAKING - ED course Complexity details: reviewed results, re-evaluated patient ED course: Pt is 71 yo F presenting with abdominal pain in setting of recent gallbladder sent placement. Diffuse abd tenderness on arrival. Pt. otherwise a febrile and hypodermically stable on arrival. Medication for pain ordered. Comprehensive labs wnl or otherwise non actionable. CT abd pelvis with gallbladder distention and possible billiary sludge. I have ordered RUQ ultrasound for further delineation of the recently place stent. Will be signing out to the oncoming physician. Please see their documentation for further detail. Departure - Departure Disposition: 01 Home, Self Care Clinical Impression: Abdominal pain Qualifiers: Abdominal location: epigastric Qualified Code(s): R10.13 - Epigastric pain Condition: Stable Instructions: ED Abdominal Pain Female Non-Specific Abdominal Pain Comments: Your images, labs, and history have been reviewed by the [place] [facility] team, including Dr. Wayne, their interventionalist. They do not feel that there is anything worrisome going on at this point in time. They are not sure why you have had the abdominal pain overnight, but all of your abdominal structures look good and they do not feel there is anything that is outside of the expected appearance. Please continue your plans to follow-up with your primary doctor, and call the [place] [facility] clinic to set up an appointment for follow- up. They would like you to have a follow-up ERCP in 1 month. If you begin to have worsening abdominal pain, fevers, and/or jaundice, you should be seen again for further evaluation. Discharge Date/Time: 01/07/22 11:27
[2022-01-07] MEDS ORDERED: SODIUM CHLORIDE 0.9% 1,000 ML IV ONE (05:05)
[2022-01-07] MEDS ORDERED: SODIUM CHLORIDE 0.9% 1,000 ML IV STA (05:07)
[2022-01-07] MEDS ORDERED: ONDANSETRON 4 MG/2 ML VIAL IVP STA (05:07)
[2022-01-07] MEDS ORDERED: HYDROmorphone 1 MG/ML CARPUJECT IVP STA (05:07)
[2022-01-07] MEDS ORDERED: fentaNYL 100 MCG/2 ML VIAL IVP PRN (05:10)
[2022-01-07] MEDS ORDERED: iohexoL-300 100 ML VIAL ONE (05:10)
[2022-01-07 05:13] LABS: BASOPHILS # (AUTO) 0.1 10^3/uL (0.0-0.1); BASOPHILS % (AUTO) 1.5 %; EOSINOPHILS # (AUTO) 0.4 10^3/uL (0.0-0.7); EOSINOPHILS % (AUTO) 4.4 %; HCT - HEMATOCRIT 45.1 % (37.0-47.0); HGB - HEMOGLOBIN 14.9 g/dL (12.0-16.0); LYMPHOCYTES # (AUTO) 2.3 10^3/uL (1.5-3.5); LYMPHOCYTES % (AUTO) 27.1 %; MEAN CORPUSCULAR HEMOGLOBIN 31.9 pg (27.0-31.0); MEAN CORPUSCULAR VOLUME 96.6 fL (81.0-99.0); MONOCYTES # (AUTO) 0.4 10^3/uL (0.0-1.0); MONOCYTES % (AUTO) 4.2 %; NEUTROPHILS # (AUTO) 5.3 10^3/uL (1.5-6.6); NEUTROPHILS % (AUTO) 62.7 %; PLT - PLATELET COUNT 492 10^3/uL (130-450); RED BLOOD COUNT 4.67 10^6/uL (4.20-5.40); RED CELL DISTRIBUTION WIDTH 11.9 % (12.0-15.0); WHITE BLOOD COUNT 8.5 x10^3/uL (4.8-10.8)
[2022-01-07 05:19] LABS: INR 0.9 (0.8-1.2); PT - PROTHROMBIN TIME 10.4 secs (9.9-12.6)
[2022-01-07 05:25] LABS: ALBUMIN 3.8 g/dL (3.2-5.5); ALBUMIN/GLOBULIN RATIO 1.2 (1.0-2.2); BILIRUBIN,TOTAL 0.5 mg/dL (0.2-1.0); CALCIUM 10.8 mg/dL (8.5-10.3); CREATININE 0.6 mg/dL (0.4-1.0); POTASSIUM 3.5 mmol/L (3.5-5.0)
[2022-01-07] MEDS ORDERED: iohexoL-300 100 ML VIAL IVP ONE (06:22)
[2022-01-07 06:38] LABS: BILIRUBIN,URINE NEGATIVE (NEGATIVE); GLUCOSE, URINE (UA) NEGATIVE (NEGATIVE); KETONES,URINE (UA) NEGATIVE (NEGATIVE); LEUKOCYTE ESTERASE, URINE NEGATIVE (NEGATIVE); NITRITE,URINE NEGATIVE (NEGATIVE); OCCULT BLOOD,URINE NEGATIVE (NEGATIVE); PROTEIN,URINE NEGATIVE (NEGATIVE); UROBILINOGEN,URINE 0.2 (NORMAL) E.U./dL (NORMAL)
[2022-01-07 06:40] LABS: CLARITY,URINE CLEAR (CLEAR)
--- NOTE | 2022-01-07 09:21 | CT Report ---
PROCEDURE: ABDOMEN/PELVIS W INDICATIONS: abd pain, recent ERCP, h/o pancreatitis CONTRAST: Omni 300 100ml TECHNIQUE: After the administration of intravenous contrast, 5 mm thick sections acquired from the diaphragms to the symphysis. 5 mm thick coronal and sagittal reformats were acquired. For radiation dose reducti on, the following was used: automated exposure control, adjustment of mA and/or kV according to elizabeth ent size. COMPARISON: CT abdomen and pelvis, 11/02/2019. FINDINGS: Image quality: Excellent. ABDOMEN: Lung bases: Lung bases are clear. Heart size is normal. Solid organs: Liver and spleen are normal in size and enhancement. Small hepatic hypodensities are unchanged, most likely cysts. Gallbladder is distended. There is a stent within the intrahepatic bile duct. Soft tissue density wit hin the lumen of the biliary stent may be sludge. There is trace intrahepatic biliary dilation. Pancreas enhances normally. No adrenal nodules. Kidneys demonstrate normal size and enhancement, wi thout hydronephrosis. Peritoneum and bowel: Bowel loops demonstrate normal wall thickness and caliber. There is a large am ount of stool in colon. No free fluid or air. Nodes and vessels: Multiple surgical clips in the right side of the pericardium. No retroperitoneal o r mesenteric adenopathy by size criteria. Aorta and inferior vena cava are normal in size. Miscellaneous: No ventral hernias. PELVIS: Genitourinary: Bladder wall thickness is normal. Miscellaneous: No inguinal hernias or adenopathy. Bones: No suspicious bony lesions. No vertebral body compression fractures. IMPRESSION: 1. Persistent in the extrahepatic biliary duct. Soft tissue density is seen within the lumen of the u reter stent, probably biliary sludge. Please correlate with serum bilirubin for biliary obstruction. The gallbladder is distended, which could be related to fasting or biliary obstruction. 2. Normal CT appearance of pancreas. No severe pancreatitis. 3. Large stool burden. No significant discrepancy with the preliminary interpretation. Reviewed by: Yogi Taylor MD on 01/07/2022 9:19 AM PST Approved by: Yogi Taylor MD on 01/07/2022 9:19 AM PST Station ID: [id number]
--- NOTE | 2022-01-07 09:33 | Ultrasound Report ---
PROCEDURE: Abdomen Limited INDICATIONS: Abd pain, recent billiary stent placement TECHNIQUE: Real-time focused scanning was performed of the abdomen, with image documentation. COMPARISON: CT abdomen and pelvis from the same date FINDINGS: The biliary stent has a appearance where it narrows somewhat near its midportion. At the e nds at measures 7 mm and 9 mm. At the level of stenosis, it measures 3 mm. The common hepatic duct is not dilated, measuring 2 mm. Normal liver echo pattern without abscess or focal mass identified. The gallbladder is distended. There is gallbladder wall thickening, measuring 4.2 mm. There is trace pericholecystic fluid. Visualized portions the pancreas are unremarkable. Right kidney has normal size, measuring 10.1 cm. No right hydronephrosis. IMPRESSION: 1. No biliary ductal dilatation peripheral to the biliary stent. 2. Distended gallbladder with gallbladder wall thickening. Reviewed by: Kalin Guidry MD on 01/07/2022 9:32 AM PST Approved by: Kalin Guidry MD on 01/07/2022 9:32 AM PST Station ID: [id number]
[2022-01-07 11:22] VITALS: BP 115/62
--- NOTE | 2022-01-07 11:22 | ED Physician Documentation ---
ED Addendum - Addendum Addendum: 01/07/22 11:18 The patient was signed out to me at change of shift by Dr. Jackson, pending ultrasound of the abdomen and consultation with gastroenterology. The patient had presented to the emergency department with sudden onset of severe epigastric pain around midnight. She has the back history of recent ERCP and biliary stenting. Her ultrasound showed stent to be in place, but with a narrow area down to about 3 mm in the middle of the stent. The gallbladder was distended and somewhat thickened with a wall Measurement of 4.5 mm. I did speak with gastroenterology through [facility] and the images, both past and present, as well as labs, were evaluated by ORLANDO Hurd and Dr. Wayne, the GI interventionalist. After extensive review, they determined that the images do not show anything concerning and given that the patient's lipase continues to trend down and her LFTs are normal, and she does not have a fever elevated white count, this is most likely a benign process unrelated to the procedure, and patient can continue to plan to follow-up as already scheduled. They did recommend ERCP in a month for follow-up, though patient states she was told 2 to 3 months for an ERCP follow-up and stent removal. I have advised her to check in with the gastroenterology clinic about this to determine exactly when they want her to be seen. In the meantime, patient does have a follow-up CT that is scheduled for January 18 and a KUB that would be done later this week. We have discussed home management of the symptoms, as well as the the need for return if the patient develops fevers, jaundice, or severe pain that is unremitting. Final impression: 1. Abdominal pain, uncertain cause Disposition: Home in stable and improved condition.
== END 2022-01-07 11:27 | disposition home or self-care (01) ==
LOC: ED 04:38
DX: R10.13 Epigastric pain (principal); Z87.891 Personal history of nicotine dependence; Z20.822 Contact with and (suspected) exposure to COVID-19
CPT/HCPCS: 36415; 74177; 76705; 80053; 81003; 83605; 83690; 84443; 84484; 85025; 85610; 87635; 93005; 96374; 99284; Q9967; 81001; 87086

== ENCOUNTER → 2022-01-09 | Outpatient (CLI) | payer MEDICARE | END | disposition short-term general hospital (02) | LOC: EMS 22:25 | DX: R10.31 Right lower quadrant pain (principal); R19.03 Right lower quadrant abdominal swelling, mass and lump; R10.817 Generalized abdominal tenderness; M54.6 Pain in thoracic spine | CPT/HCPCS: A0425; A0427 ==

== ENCOUNTER 2022-06-15 11:55 | Outpatient (CLI) | payer MEDICARE | END 2022-06-15 11:56 | disposition critical access hospital (66) | LOC: EMS 11:55 | DX: R55 Syncope and collapse (principal) | CPT/HCPCS: A0425; A0427 ==

== ENCOUNTER 2022-06-15 12:19 | Emergency (ER) | payer MEDICARE ==
[2022-06-15] MEDS ORDERED: ONDANSETRON 4 MG/2 ML VIAL ONE (12:47)
--- NOTE | 2022-06-15 13:06 | ED Physician Documentation ---
History of Present Illness - Stated complaint Stated Complaint: SZ - Chief complaint Chief Complaint: Neuro - History obtained from History obtained from: Patient, Family, EMS - Additonal information Additional information: The patient is brought to the emergency department by EMS for chief complaint of possible seizure while driving her car. The patient was on her way home from her appointment when she suddenly began to feel very lightheaded. She was feeling unwell and was about to make a left turn and had thought she might pick pulling machine operator when she made the turn but ended up having to just pull the emergency brake and the turn gisselle. She states she does not remember anything after that until she heard somebody asking her if she was okay. She was still in her car in the medical van driver seat at that time. The patient was driving alone and nobody witnessed The event from within the car, but according to medics, drivers next to the patient noted what appeared to be a possible seizure. The patient was noted to have some jerking movements and then found to be smacking her lips after the event. It is not clear how long the event lasted though it is thought to be a minute or less. The patient was somewhat confused afterward but this resolved quickly. In route, she was found to have a blood sugar of around 122. She was hemodynamically stable. The patient states that she has had 1 other episode like this when she was 23 years old. She was just at home at that time and there were no other specific circumstances contributing. She states she began to feel very lightheaded at that time and then lost consciousness. It was not clear whether she had a seizure or not there was some bystanders thought she had and so she had follow-up with a neurologist at that time. Neurology did not find an exact cause of the patient's symptoms and she has not had anything like that since. She was never formally diagnosed with a seizure disorder. The patient states that ever since she had her gallbladder removed several months ago, there has been a lot of trouble with her digestive system. She states anytime she eats anything with fats in it, it just comes out as diarrhea. She has been seen by gastroenterology, internal medicine, and also her family doctor. She was last seen by her childhood development teacher Dr. Rosas about 3 weeks ago, at which time she was put on a Bile medication and this visit is to help with the diarrhea. However, Even though she was on only half a tablet at a time, she states it caused terrible constipation and she had to go off of it and now is back to diarrhea again. Patient states right now she is feeling very lightheaded and very thirsty. She is concerned that she is "starving to " because she is not absorbing any nutrients and is lost 15 pounds in the last 2 months when she was already very slender. She has an appointment coming up with her primary doctor in July to readdress these issues. Nobody has talked to her about TPN at this point and she has not yet seen a dietitian/bill poster installer. PD PAST MEDICAL HISTORY - Past Medical History Cardiovascular: None Respiratory: None Neuro: None Endocrine/Autoimmune: None GI: None ARE[employer] PLANT MANAGER: Ovarian cancer : None HEENT: Chronic vision loss Psych: None Musculoskeletal: Osteoporosis Derm: None - Past Surgical History Past Surgical History: Yes General: Colonoscopy /ARE[employer] PLANT MANAGER: Hysterectomy, Oophrectomy HEENT: Tonsil/Adenoidectomy Derm: Other - Present Medications Home Medications: Ambulatory Orders Medication Instructions Recorded Confirmed Potassium Chloride [K-Dur] 20 meq PO BIDWM #20 tablet 06/15/22 - Allergies Allergies/Adverse Reactions: Allergies Allergy/AdvReac Type Severity Reaction Status Date / Time No Known Drug Allergies Allergy Verified 06/15/22 12:27 - Social History Does the pt smoke?: No Smoking Status: Former smoker (Quit 40 years ago) Does the pt drink ETOH?: Yes Does the pt have substance abuse?: No - Immunizations Immunizations are current?: Yes - POLST Patient has POLST: Yes PD ED PE NORMAL - Vitals Vital signs reviewed: Yes - General General: Alert and oriented X 3, No acute distress, Other (Very thin female who appears uncomfortable; Actively vomiting intermittently on exam) - HEENT HEENT: Atraumatic, PERRL, EOMI, Moist mucous membranes - Neck Neck: Supple, no meningeal sign - Cardiac Cardiac: RRR, No murmur, Strong equal pulses - Respiratory Respiratory: No respiratory distress, Clear bilaterally - Abdomen Abdomen: Soft, Non tender, Non distended - Derm Derm: Normal color, Warm and dry, No rash - Extremities Extremities: No deformity, No edema - Neuro Neuro: Alert and oriented X 3 - Psych Psych: Normal mood, Normal affect Results - Vitals Vitals: Oxygen O2 Source Room air - EKG (time done) 1341 EKG releavant findings:: EKG personally interpreted by author of this note. Relevant findings are: Rate: Rate (enter#) (63) Rhythm: NSR Calvin: Normal Intervals: Prolonged [place] (borderline) QRS: Normal Ischemia: Normal ST segments Compare to prior EKG: Old EKG unavailable Computer interpretation: Agree with computer - Labs Labs: Laboratory Tests 06/15/22 06/15/22 13:42 13:42 WBC 16.3 H RBC 4.32 Hgb 14.1 Hct 42.8 MCV 99.1 H MCH 32.6 H MCHC 32.9 RDW 11.6 L Plt Count 234 MPV 10.5 Neut # (Auto) 14.7 H Lymph # (Auto) 0.8 L Harvey # (Auto) 0.5 Eos # (Auto) 0.1 Baso # (Auto) 0.1 Absolute Nucleated RBC 0.00 Nucleated RBC % 0.0 Sodium 144 Potassium 3.0 L Chloride 109 Carbon Dioxide 25 Anion Gap 10.0 BUN 11 Creatinine 0.5 Estimated GFR (MDRD) 122 Glucose 128 H Calcium 8.1 L Total Bilirubin 0.5 AST 53 H ALT 33 Alkaline Phosphatase 78 Total Protein 6.3 L Albumin 3.6 Globulin 2.7 Albumin/Globulin Ratio 1.3 Lipase 132 H - Rads (name of study) CT head Relevant Findings:: Final report received, See rad report (nad; ) PD Medical Decision Making - ED course Complexity details: reviewed results, re-evaluated patient, considered differential, d/w patient, d/w family ED course: The patient was given IV fluids and Zofran and worked up with laboratory studies including ER abdominal panel and CBC. She is also worked up with head CT in regard to the possible seizure. The pt's work-up was reviewed by me, and largely unremarkable. She was found to be mildly hypokalemic, and was treated for this. She reported feeling way better on re-evaluation, and looked much better. I felt she was stable for discharge home. I do not know if her event represents a seizure or a syncopal episode, and this will have to be sorted out as an outpatient for now. We have discussed the need for follow-up and the usual indications for return. Departure - Departure Disposition: 01 Home, Self Care Clinical Impression: Dehydration, Seizure-like activity, Hypokalemia Episode of syncope Qualifiers: Syncope type: unspecified Qualified Code(s): R55 - Syncope and collapse Condition: Stable Instructions: ED Dehydration, ED Potassium Deficiency, ED Syncope Vasovagal, ED Seizure New Onset Unk Cause Prescriptions: Potassium Chloride [K-Dur] 20 meq PO BIDWM #20 tablet Comments: Overall, your laboratory studies look good. You were found to have moderately decreased potassium and for this you have been started on potassium supplements. Most likely, this is due to your ongoing diarrhea and you should talk to your doctor about seeing a bill poster installer to help you deal with some of the challenges you have had lately. We will do for now temporary potassium replacements until your doctor can recheck your potassium and see how it's doing. Discharge Date/Time: 06/15/22 15:57
--- NOTE | 2022-06-15 13:32 | CT Report ---
PROCEDURE: HEAD WO INDICATIONS: seizure TECHNIQUE: Noncontrast 4.5 mm thick angled axial sections acquired from the foramen magnum to the vertex. For r adiation dose reduction, the following was used: automated exposure control, adjustment of mA and/or kV according to patient size. COMPARISON: None. FINDINGS: Image quality: Excellent. The ventricular system and cortical sulci demonstrate atrophy, consistent for patient's stated age. There are areas of hypodensity in the periventricular and subcortical white matter. There is no acut e intra or extra-axial fluid collection. No acute hemorrhage, mass lesion or midline shift. Brainst em is unremarkable. Globes are symmetrical. Sinuses are aerated. Osseous structures are intact. IMPRESSION: 1. No acute intracranial process. 2. Moderate atrophy and chronic microvascular ischemic changes. Reviewed by: Purvi Ozuna MD on 06/15/2022 1:31 PM PDT Approved by: Purvi Ozuna MD on 06/15/2022 1:31 PM PDT Station ID: [id number]
[2022-06-15 13:45] LABS: BASOPHILS # (AUTO) 0.1 10^3/uL (0.0-0.1); BASOPHILS % (AUTO) 0.5 %; EOSINOPHILS # (AUTO) 0.1 10^3/uL (0.0-0.7); EOSINOPHILS % (AUTO) 0.4 %; HCT - HEMATOCRIT 42.8 % (37.0-47.0); HGB - HEMOGLOBIN 14.1 g/dL (12.0-16.0); LYMPHOCYTES # (AUTO) 0.8 10^3/uL (1.5-3.5); LYMPHOCYTES % (AUTO) 5.1 %; MEAN CORPUSCULAR HEMOGLOBIN 32.6 pg (27.0-31.0); MEAN CORPUSCULAR HGB CONC 32.9 g/dL (32.0-36.0); MEAN CORPUSCULAR VOLUME 99.1 fL (81.0-99.0); MEAN PLATELET VOLUME 10.5 fL (7.9-10.8); MONOCYTES # (AUTO) 0.5 10^3/uL (0.0-1.0); MONOCYTES % (AUTO) 2.9 %; NEUTROPHILS # (AUTO) 14.7 10^3/uL (1.5-6.6); NEUTROPHILS % (AUTO) 90.6 %; PLT - PLATELET COUNT 234 10^3/uL (130-450); RED BLOOD COUNT 4.32 10^6/uL (4.20-5.40); RED CELL DISTRIBUTION WIDTH 11.6 % (12.0-15.0); WHITE BLOOD COUNT 16.3 x10^3/uL (4.8-10.8)
[2022-06-15 13:58] LABS: ALBUMIN 3.6 g/dL (3.2-5.5); ALBUMIN/GLOBULIN RATIO 1.3 (1.0-2.2); BILIRUBIN,TOTAL 0.5 mg/dL (0.2-1.0); CALCIUM 8.1 mg/dL (8.5-10.3); CREATININE 0.5 mg/dL (0.4-1.0); TOTAL PROTEIN 6.3 g/dL (6.7-8.2)
[2022-06-15] MEDS ORDERED: BACITRACIN ZINC OINT 1 PACKET TOP STA (14:32)
[2022-06-15] MEDS ORDERED: POTASSIUM CHLORIDE 20 MEQ TABLET PO STA (14:32)
[2022-06-15 15:59] VITALS: BP 110/60
== END 2022-06-15 15:57 | disposition home or self-care (01) ==
LOC: EDUNIT# → ED 12:19
DX: E86.0 Dehydration (principal); R56.9 Unspecified convulsions; R55 Syncope and collapse; E87.6 Hypokalemia; Z87.891 Personal history of nicotine dependence
CPT/HCPCS: 36415; 70450; 80053; 83690; 85025; 93005; 99284; A9270

== ENCOUNTER 2023-03-02 23:59 | Outpatient (CLI) | payer MEDICARE | END 2023-03-03 | disposition critical access hospital (66) | LOC: EMS 23:59 | DX: R10.12 Left upper quadrant pain (principal); R10.32 Left lower quadrant pain; R10.31 Right lower quadrant pain; R10.814 Left lower quadrant abdominal tenderness; R10.812 Left upper quadrant abdominal tenderness; R10.813 Right lower quadrant abdominal tenderness; R11.2 Nausea with vomiting, unspecified | CPT/HCPCS: A0425; A0427 ==